=== PATIENT | male | born 1975 | race Caucasian/White ===

== ENCOUNTER 2021-10-11 20:18 | Emergency (ER) | payer OTHER ==
[2021-10-11 20:37] VITALS: TEMP 98.4
[2021-10-11] MEDS ORDERED: OXYMETAZOLINE 0.05% NASL SPRAY 1 SPRAY BOTTLE NASAL STA (21:15)
--- NOTE | 2021-10-11 21:18 | ED ---
ENT HPI - General Chief complaint: ENT Stated complaint: Nose Bleed Time Seen by Provider: 10/11/21 21:06 Source: patient Mode of arrival: ambulatory Limitations: no limitations - History of Present Illness MD complaint: epistaxis Onset/Timin -: hour(s) Location: nose Severity scale (1-10): 0 Consistency: intermittent Improves with: pressure Worsens with: none Context-Epistaxis: history of similar - Related Data Previous Rx's Medication Instructions Recorded Amoxicillin 250 mg PO Q8H #30 cap 06/07/16 Metoprolol Tartrate 25 mg PO BID #30 tab 06/07/16 Allergies Allergy/AdvReac Type Severity Reaction Status Date / Time No Known Allergies Allergy Verified 10/11/21 20:34 Review of Systems ROS Statement: Those systems with pertinent positive or pertinent negative responses have been documented in the HPI. ROS Other: All systems not noted in ROS Statement are negative. Constitutional: Denies: fever, chills ENT: Reports: epistaxis. Denies: ear pain, throat pain, congestion Respiratory: Denies: cough, dyspnea Cardiovascular: Denies: chest pain, palpitations Gastrointestinal: Denies: nausea, vomiting Hematological/Lymphatic: Denies: easy bleeding Past Medical History Past Medical History: No Reported History History of Any Multi-Drug Resistant Organisms: None Reported Past Surgical History: No Surgical Hx Reported Past Psychological History: Anxiety Smoking Status: Current every day smoker Past Alcohol Use History: Occasional Past Drug Use History: Marijuana General Exam Limitations: no limitations General appearance: alert, in no apparent distress Head exam: Present: atraumatic, normocephalic Eye exam: Present: normal appearance ENT exam: Present: normal oropharynx, mucous membranes moist, other (Trace of dried blood right naris) Respiratory exam: Present: normal lung sounds bilaterally. Absent: respiratory distress, wheezes, rales, rhonchi, stridor Cardiovascular Exam: Present: regular rate, normal rhythm, normal heart sounds. Absent: systolic murmur, diastolic murmur, rubs, gallop Course Vital Signs 10/11/21 20:35 Temperature 98.4 F Pulse Rate 79 Respiratory 20 Rate Blood Pressure 196/109 O2 Sat by Pulse 99 Oximetry Disposition Clinical Impression: Epistaxis Disposition: DC/TRNS W/I HOSP TO SNF SWING Condition: Good Instructions (If sedation given, give patient instructions): Nosebleed (ED) Is patient prescribed a controlled substance at d/c from ED?: No Referrals: None,Stated [Primary Care Provider] - 1-2 days Chandler Velazco MD [STAFF PHYSICIAN] - 1-2 days
[2021-10-11 22:49] VITALS: BP 177/89; PULSE 75; RESP 18
== END 2021-10-11 22:49 | disposition swing bed (61) ==
LOC: EC 20:18
DX: R04.0 Epistaxis (principal); F17.200 Nicotine dependence, unspecified, uncomplicated
CPT/HCPCS: 99282